=== PATIENT | female | born 1960 | race Hispanic/Latino ===

== ENCOUNTER 2017-05-26 20:39 | Emergency (ER) | payer MEDICAID ==
[2017-05-26 20:45] VITALS: BMI 30.2
[2017-05-26 20:46] VITALS: BP 153/92; PULSE 91; RESP 18; TEMP 98.1; O2SAT 97
--- NOTE | 2017-05-26 22:13 | ED PDOC ---
Arrival/HPI - General Historian: Patient - History of Present Illness Quality: Aching Severity Level: Moderate <JEROME JOHNSON - Last Filed: 05/26/17 23:05> <Rahul Rios DO - Last Filed: 05/27/17 06:25> - General Chief Complaint: Trauma Time Seen by Provider: 05/26/17 21:20 - History of Present Illness Narrative History of Present Illness (Text): 05/26/17 22:07 Ms. Reyes is a 56 yo female who complains of right shoulder, right wrist, and left neck pain after falling down a few steps on 05/24/2017. She indicates the reason for falling was a missed step. She denied any dizziness, loss of consciousness, or loss of feeling during her fall. She reports breaking her fall with an outstretched right arm and falling primarily on her right side. She states the pain is achy and worsened with movement. She reports taking a left over percocet 7.5mg this AM that improved her symptoms. (JEROME JOHNSON) Past Medical History - Provider Review Nursing Documentation Reviewed: Yes - Past History Past History: Non-Contributing - Infectious Disease Hx of Infectious Diseases: None - Tetanus Immunization Tetanus Immunization: Unknown - Cardiac Hx Hypertension: Yes - Pulmonary Hx Chronic Obstructive Pulmonary Disease (COPD): Yes Other/Comment: smoker - Neurological Hx Paralysis: No - HEENT Hx HEENT Disorder: (WEARSR X GLASSES) - Renal Hx Renal Disorder: No - Endocrine/Metabolic Hx Hypothyroidism: Yes - Hematological/Oncological Hx Cancer: Yes (cervix) - Integumentary Hx Dermatological Disorder: (ABRASION AND BRUISING FROM FALL) - Musculoskeletal/Rheumatological Hx Back Pain: Yes Hx Falls: Yes - Gastrointestinal Hx Gastrointestinal Disorders: No - Genitourinary/Gynecological Hx Incontinence: Yes (@ times) - Psychiatric Hx Psychophysiologic Disorder: Yes (SMOKES CIGARETTES ON AND OFF 2-3 CIG/DAY X 40 YRS,SOCIAL DRINKER) Hx Anxiety: Yes Hx Depression: Yes Hx Emotional Abuse: No Hx Panic Disorder: Yes Hx Physical Abuse: No Hx Substance Use: No - Surgical History Hx Orthopedic Surgery: Yes (NECK) - Anesthesia Hx Anesthesia: Yes Hx Anesthesia Reactions: No Hx Malignant Hyperthermia: No - Suicidal Assessment Feels Threatened In Home Enviroment: No <JEROME JOHNSON - Last Filed: 05/26/17 23:05> Family/Social History - Physician Review Nursing Documentation Reviewed: Yes Smoking Status: Heavy Smoker > 10 Cigarettes Daily Hx Alcohol Use: Yes Frequency of alcohol use: Socially Hx Substance Use: No Hx Substance Use Treatment: No <JEROME JOHNSON - Last Filed: 05/26/17 23:05> Family/Social History: No Known Family HX <Rahul Rios DO - Last Filed: 05/27/17 06:25> Allergies/Home Meds <JEROME JOHNSON - Last Filed: 05/26/17 23:05> <Rahul Rios DO - Last Filed: 05/27/17 06:25> Allergies/Adverse Reactions: Allergies codeine Allergy (Verified 09/05/16 10:39) ITCHING Home Medications: Home Meds Medication Instructions Recorded Confirmed Atorvastatin Calcium [Lipitor] 10 mg PO DAILY 03/08/15 05/26/17 ALPRAZolam [Xanax] 1 mg PO BID PRN 09/05/16 05/26/17 Baclofen [Lioresal] 10 mg PO Q8 09/05/16 05/26/17 Buspirone HCl 15 mg PO DAILY 09/05/16 05/26/17 Ergocalciferol (Vitamin D2) 5,000 units PO DAILY 09/05/16 05/26/17 [Vitamin D2] Mirtazapine [Remeron] 30 mg PO HS 09/05/16 05/26/17 Oxybutynin XL [Ditropan XL] 10 mg PO DAILY 09/05/16 05/26/17 Spironolactone [Aldactone] 25 mg PO DAILY 09/05/16 05/26/17 amLODIPine [Norvasc] 10 mg PO DAILY 09/05/16 05/26/17 buPROPion SR [Wellbutrin SR 150 MG] 1 tab PO DAILY 09/05/16 05/26/17 Levothyroxine [Synthroid] 100 mcg PO ACB 05/26/17 05/26/17 Oxycodone HCl/Acetaminophen 1 tab PO BID PRN 05/26/17 05/26/17 [Oxycodon-Acetaminophen 7.5-325] Zaleplon [Sonata] 1 tab PO DAILY 07/06/17 07/06/17 Review of Systems - Review of Systems Constitutional: Normal Eyes: Normal ENT: Normal Respiratory: Normal Cardiovascular: Normal Gastrointestinal: Normal Musculoskeletal: Neck Pain (left sided ), Other (right shoulder pain, right wrist pain, right breast pain) Skin: Normal Neurological: Normal Endocrine: Normal Hemo/Lymphatic: Normal <JEROME JOHNSON - Last Filed: 05/26/17 23:05> Physical Exam Vital Signs Reviewed: Yes Temperature: Afebrile Blood Pressure: Hypertensive Pulse: Tachycardic Respiratory Rate: Normal Appearance: Positive for: Well-Appearing - Systems Exam Head: Present: Atraumatic, Normocephalic Pupils: Present: PERRL Extroacular Muscles: Present: EOMI Conjunctiva: Present: Normal Mouth: Present: Moist Mucous Membranes Neck: Present: Normal Range of Motion Respiratory/Chest: Present: Clear to Auscultation, Good Air Exchange. No: Respiratory Distress, Accessory Muscle Use Cardiovascular: Present: Regular Rate and Rhythm, Normal S1, S2. No: Murmurs Abdomen: Present: Normal Bowel Sounds. No: Tenderness, Distention, Peritoneal Signs Back: Present: Normal Inspection Upper Extremity: Present: Normal ROM, NORMAL PULSES, Tenderness (Right shoulder , Right wrist, ), Neurovascularly Intact, Norm 2-Pt Discrimination. No: Cyanosis, Edema Lower Extremity: Present: Normal Inspection. No: Edema Neurological: Present: GCS=15, CN II-XII Intact, Speech Normal Skin: Present: Warm, Dry, Normal Color. No: Rashes Psychiatric: Present: Alert, Oriented x 3, Normal Insight, Normal Concentration <JEROME JOHNSON - Last Filed: 05/26/17 23:05> Medical Decision Making <JEROME JOHNSON - Last Filed: 05/26/17 23:05> <Rahul Rios DO - Last Filed: 05/27/17 06:25> ED Course and Treatment: 05/26/17 23:03 Impression: 56 year old female complaining of right shoulder, right wrist, and left neck pain for past 2 days Differential Diagnosis included but are not limited to: Plan: - Right shoulder x-ray. right wrist x-ray, CT scan of neck and head - Motrin and Flexeril for symptoms - Reassess and disposition Progress Notes: 05/26/17 23:06 (JEROME JOHNSON) - RAD Interpretation Radiology Orders: 05/26/17 21:21 CERVICAL SPINE W/O CONTRAST [CT] Stat HEAD W/O CONTRAST [CT] Stat SHOULDER RIGHT [RAD] Stat WRIST, RIGHT 3 VIEWS [RAD] Stat - Medication Orders Current Medication Orders: Discontinued Medications Cyclobenzaprine HCl (Flexeril) 10 mg PO STAT STA Stop: 05/26/17 23:55 Last Admin: 05/27/17 00:02 Dose: 10 mg Ibuprofen (Motrin Tab) 600 mg PO STAT STA Stop: 05/26/17 23:48 Last Admin: 05/26/17 23:55 Dose: Not Given Non-Admin Reason: Patient Refused Disposition/Present on Arrival - Present on Arrival History of DVT/PE: No History of Uncontrolled Diabetes: No Urinary Catheter: No History of Decub. Ulcer: No History Surgical Site Infection Following: None <JEROME JOHNSON - Last Filed: 05/26/17 23:05> - Present on Arrival Any Indicators Present on Arrival: No - Disposition Have Diagnosis and Disposition been Completed?: Yes Disposition Time: 22:45 <Rahul Rios DO - Last Filed: 05/27/17 06:25> - Disposition Diagnosis: Musculoskeletal pain, Neck pain Disposition: HOME/ ROUTINE Condition: IMPROVED Discharge Instructions (ExitCare): Musculoskeletal Pain (ED) Additional Instructions: Thank you for letting us take care of you today. You were treated for musculoskeletal pain. The emergency medical care you received today was directed at your acute symptoms. If you were prescribed any medication, please fill it and take as directed. It may take several days for your symptoms to resolve. Return to the Emergency Department if your symptoms worsen, do not improve, or if you have any other problems. Please contact your doctor or call one of the physicians/clinics you have been referred to that are listed on the Patient Visit Information form that is included in your discharge packet. Bring any paperwork you were given at discharge with you along with any medications you are taking to your follow up visit. Our treatment cannot replace ongoing medical care by a primary care provider (PCP) outside of the emergency department. Thank you for allowing the [facility] team to be part of your care today. Follow up with your doctor in 2-3 days for re-evaluation. Prescriptions: Cyclobenzaprine [Cyclobenzaprine HCl] 10 mg PO Q8 PRN #20 tab PRN Reason: Muscle Spasm Ibuprofen [Motrin] 600 mg PO Q6 PRN #20 tab PRN Reason: Pain, Moderate (4-7) Referrals: Nancy Nagel MD [Primary Care Provider] - Follow up with primary
--- NOTE | 2017-05-26 22:38 | CT ---
EXAM: CT Head Without Intravenous Contrast CLINICAL HISTORY: 56 years old, female; Injury or trauma; Fall; Initial encounter; Concussion / head injury; Additional info: S/P fall TECHNIQUE: Axial computed tomography images of the head/brain without intravenous contrast. This CT exam was performed using one or more of the following dose reduction techniques: automated exposure control, adjustment of the mA and/or kV according to patient size, and/or use of iterative reconstruction technique. COMPARISON: CT - HEAD W/O CONTRAST 09/05/2016 11:42:16 AM FINDINGS: Brain: No intracranial hemorrhage. No mass. No edema. Ventricles: No hydrocephalus. Bones/joints: No acute fracture. Soft tissues: Unremarkable. Vasculature: Minimal atherosclerotic disease of intracranial arteries. Sinuses: No acute sinusitis. Mastoid air cells: No mastoid effusion. Orbits: Unremarkable as visualized. IMPRESSION: 1. No intracranial hemorrhage. 2. Incidental/non-acute findings are described above.
--- NOTE | 2017-05-26 22:42 | CT ---
EXAM: CT Cervical Spine Without Intravenous Contrast CLINICAL HISTORY: 56 years old, female; Injury or trauma; Fall; Initial encounter; Concussion /head injury; Additional info: R/O FX TECHNIQUE: Axial computed tomography images of the cervical spine without intravenous contrast. This CT exam was performed using one or more of the following dose reduction techniques: automated exposure control, adjustment of the mA and/or kV according to patient size, and/or use of iterative reconstruction technique. Coronal and sagittal reformatted images were created and reviewed. COMPARISON: No relevant prior studies available. FINDINGS: Vertebrae: No acute fracture. Mild reversal of cervical lordosis. Schmorl's nodes at few levels. Facet osteoarthrosis within cervical spine. Discs/spinal canal/neural foramina: Early degenerative disc disease within mid cervical spine. Moderate degenerative disc disease within lower cervical spine. No significant spinal stenosis. Soft tissues: Unremarkable. Sinuses: Scattered minimal mucosal thickening. Lung apices: Mild bullous changes. IMPRESSION: 1. No fracture. 2. Incidental/non-acute findings are described above.
--- NOTE | 2017-05-27 08:48 | RAD ---
PROCEDURE: Radiographs of the Right Shoulder HISTORY: r/o fx COMPARISON: No prior. FINDINGS: BONES: Normal. No fracture. JOINTS: Normal. Glenohumeral and acromioclavicular joints preserved. No osteoarthritis. SOFT TISSUES: Normal. OTHER FINDINGS: None. IMPRESSION: No evidence of acute fracture or dislocation.
--- NOTE | 2017-05-27 09:26 | RAD ---
PROCEDURE: Right Wrist Radiographs. HISTORY: r/o fx COMPARISON: None. FINDINGS: BONES: Normal. No fracture. JOINTS: Normal. No dislocation. SOFT TISSUES: Normal. OTHER FINDINGS: None. IMPRESSION: Normal right wrist radiographs.
== END 2017-05-27 00:07 | disposition home or self-care (01) ==
LOC: ED 20:39
DX: M54.2 Cervicalgia (principal); M79.1 Myalgia; I10 Essential (primary) hypertension; F17.210 Nicotine dependence, cigarettes, uncomplicated

== ENCOUNTER 2017-06-16 04:23 | Emergency (ER) | payer MEDICAID ==
[2017-06-16 04:35] VITALS: BP 158/90; PULSE 89; RESP 18; TEMP 98.5; O2SAT 95; BMI 28.1
[2017-06-16] MEDS ORDERED: Amoxicillin-Clav 875-125 mg Tab PO STA (04:41)
--- NOTE | 2017-06-16 04:45 | ED PDOC ---
Arrival/HPI <German Martin - Last Filed: 06/16/17 04:41> <Daniel Cardoza - Last Filed: 06/16/17 04:52> - General Chief Complaint: Bite Time Seen by Provider: 06/16/17 04:34 - History of Present Illness Narrative History of Present Illness (Text): 06/16/17 04:42 This is a 56yo F w/ a PMhx of HTN, hypothyroidism, carotid aneurysm, cervical CA who is coming into the hospital after her house cat bit her on her left pointer finger. The bite was 20 minutes ago. She has owned the cat for the past 20 years. She has no other complaints; denies MURRELL, CP, SOB, abdominal pain, N/v/D , dysuria/freq/urg, or lower extremity pain/swelling. Allergic to codeine. 06/16/17 04:43 (German Martin) Past Medical History - Provider Review Nursing Documentation Reviewed: Yes - Travel History Have you recently traveled outside [place] w/in the past 3 mons?: No - Past History Past History: Non-Contributing - Infectious Disease Hx of Infectious Diseases: None - Tetanus Immunization Tetanus Immunization: Unknown - Cardiac Hx Hypertension: Yes - Pulmonary Hx Chronic Obstructive Pulmonary Disease (COPD): Yes Other/Comment: smoker - Neurological Hx Paralysis: No - HEENT Hx HEENT Disorder: (WEARSR X GLASSES) - Renal Hx Renal Disorder: No - Endocrine/Metabolic Hx Hypothyroidism: Yes - Hematological/Oncological Hx Cancer: Yes (cervix) - Integumentary Hx Dermatological Disorder: (ABRASION AND BRUISING FROM FALL) - Musculoskeletal/Rheumatological Hx Back Pain: Yes Hx Falls: Yes - Gastrointestinal Hx Gastrointestinal Disorders: No - Genitourinary/Gynecological Hx Incontinence: Yes (@ times) - Psychiatric Hx Psychophysiologic Disorder: Yes (SMOKES CIGARETTES ON AND OFF 2-3 CIG/DAY X 40 YRS,SOCIAL DRINKER) Hx Anxiety: Yes Hx Depression: Yes Hx Emotional Abuse: No Hx Panic Disorder: Yes Hx Physical Abuse: No Hx Substance Use: No - Surgical History Hx Orthopedic Surgery: Yes (NECK) - Anesthesia Hx Anesthesia: Yes Hx Anesthesia Reactions: No Hx Malignant Hyperthermia: No - Suicidal Assessment Feels Threatened In Home Enviroment: No <German Martin - Last Filed: 06/16/17 04:41> Family/Social History - Physician Review Nursing Documentation Reviewed: Yes Family/Social History: No Known Family HX Smoking Status: Heavy Smoker > 10 Cigarettes Daily Hx Alcohol Use: Yes Hx Substance Use: No Hx Substance Use Treatment: No <German Martin - Last Filed: 06/16/17 04:41> Allergies/Home Meds <German Martin - Last Filed: 06/16/17 04:41> <Daniel Cardoza - Last Filed: 06/16/17 04:52> Allergies/Adverse Reactions: Allergies codeine Allergy (Verified 09/05/16 10:39) ITCHING Home Medications: Home Meds Medication Instructions Recorded Confirmed Atorvastatin Calcium [Lipitor] 10 mg PO DAILY 03/08/15 05/26/17 ALPRAZolam [Xanax] 1 mg PO BID PRN 09/05/16 05/26/17 Baclofen [Lioresal] 10 mg PO Q8 09/05/16 05/26/17 Buspirone HCl 15 mg PO DAILY 09/05/16 05/26/17 Ergocalciferol (Vitamin D2) 5,000 units PO DAILY 09/05/16 05/26/17 [Vitamin D2] Mirtazapine [Remeron] 30 mg PO HS 09/05/16 05/26/17 Oxybutynin XL [Ditropan XL] 10 mg PO DAILY 09/05/16 05/26/17 Spironolactone [Aldactone] 25 mg PO DAILY 09/05/16 05/26/17 amLODIPine [Norvasc] 10 mg PO DAILY 09/05/16 05/26/17 buPROPion SR [Wellbutrin SR 150 MG] 1 tab PO DAILY 09/05/16 05/26/17 Levothyroxine [Synthroid] 100 mcg PO ACB 05/26/17 05/26/17 Oxycodone HCl/Acetaminophen 1 tab PO BID PRN 05/26/17 05/26/17 [Oxycodon-Acetaminophen 7.5-325] Zaleplon [Sonata] 1 tab PO DAILY 05/26/17 05/26/17 Review of Systems - Review of Systems Constitutional: absent: Fatigue, Weight Change Eyes: absent: Vision Changes, Photophobia ENT: absent: Hearing Changes, Tinnitus Respiratory: absent: SOB, Cough Cardiovascular: absent: Chest Pain, Palpitations Gastrointestinal: absent: Abdominal Pain, Stool Changes Genitourinary Female: absent: Dysuria, Frequency Musculoskeletal: absent: Arthralgias Skin: absent: Rash, Pruritis Neurological: absent: Headache Endocrine: absent: Diaphoresis Hemo/Lymphatic: absent: Adenopathy Psychiatric: absent: Anxiety, Depression <German Martin - Last Filed: 06/16/17 04:41> Physical Exam Temperature: Afebrile Blood Pressure: Normal Pulse: Regular Respiratory Rate: Normal Appearance: Positive for: Well-Appearing Mental Status: Positive for: Alert and Oriented X 3 - Systems Exam Head: Present: Atraumatic Pupils: Present: PERRL Extroacular Muscles: Present: EOMI Conjunctiva: Present: Normal Mouth: Present: Moist Mucous Membranes Neck: Present: Normal Range of Motion Respiratory/Chest: Present: Clear to Auscultation, Good Air Exchange Cardiovascular: Present: Regular Rate and Rhythm. No: Murmurs Abdomen: No: Tenderness, Distention Upper Extremity: Present: Normal Inspection. No: Cyanosis, Edema (small bite on the left pointer finger not bleeding no pus no signs of infection ) Lower Extremity: Present: Normal Inspection. No: Edema Neurological: Present: GCS=15 Skin: Present: Warm Psychiatric: Present: Alert <German Martin - Last Filed: 06/16/17 04:41> Medical Decision Making <German Martin - Last Filed: 06/16/17 04:41> <Daniel Cardoza - Last Filed: 06/16/17 04:52> ED Course and Treatment: 06/16/17 04:44 Will give augmentin here in ER Patient is stable for d/c as per Dr. Cardoza Patient will go home on Augmentin 875 BID for 7 days Explained to come back in for any worsening pain swelling or signs of infection in the finger and to keep the finger clean and dry (German Martin) Impression: Pt seen and evaluated by back office medical assistant. Pt, whose past medical history includes hypertension, hypothyroidism, carotid aneurysm, and cervical cancer, presented to the emergency department complaining of a cat bite to her left 2nd digit 20 minutes prior to arrival. Pt states the cat is her family cat. Aware and agree with HPI, clinical findings, plan, and management. Plan: -- Augmentin - Reassess and disposition (Daniel Cardoza) - Medication Orders Current Medication Orders: Discontinued Medications Amoxicillin/Clavulanate Potassium (Augmentin 875 Mg-125 Mg Tab) 1 tab PO STAT STA PRN Reason: Protocol Stop: 06/16/17 04:42 Last Admin: 06/16/17 04:45 Dose: 1 tab - PA / DOUGH SHEETER / Resident Statement / has reviewed & agrees with the documentation as recorded. / has examined the patient and agrees with the treatment plan. <Daniel Cardoza - Last Filed: 06/16/17 04:52> Disposition/Present on Arrival - Present on Arrival Any Indicators Present on Arrival: No History of DVT/PE: No History of Uncontrolled Diabetes: No Urinary Catheter: No History of Decub. Ulcer: No History Surgical Site Infection Following: None - Disposition Have Diagnosis and Disposition been Completed?: Yes Disposition Time: 04:44 Patient Plan: Discharge <German Martin - Last Filed: 06/16/17 04:41> <Daniel Cardoza - Last Filed: 06/16/17 04:52> - Disposition Diagnosis: Cat bite Disposition: HOME/ ROUTINE Condition: FAIR Discharge Instructions (ExitCare): Animal Bite (ED) Prescriptions: Amoxicillin/Clavulanate [Augmentin 875 MG-125 MG] 1 tab PO BID #14 tab Forms: [employer] ([place])
== END 2017-06-16 04:55 | disposition home or self-care (01) ==
LOC: ED 04:23
DX: S61.251A Open bite of left index finger without damage to nail, initial encounter (principal); W55.01XA Bitten by cat, initial encounter; Y93.89 Activity, other specified; Y92.89 Other specified places as the place of occurrence of the external cause

== ENCOUNTER 2017-06-26 03:26 | Emergency (ER) | payer MEDICAID ==
[2017-06-26 03:37] VITALS: BMI 28.9
[2017-06-26 03:40] VITALS: PULSE 100; TEMP 98.1
--- NOTE | 2017-06-26 03:49 | ED PDOC ---
Arrival/HPI - History of Present Illness Time/Duration: < week Symptom Onset: Gradual Symptom Course: Unchanged Context: Home <Guera Shaver - Last Filed: 06/26/17 03:45> <Camron Gomes - Last Filed: 06/26/17 04:20> - General Time Seen by Provider: 06/26/17 03:30 - History of Present Illness Narrative History of Present Illness (Text): 06/26/17 03:49 56 year old female with past medical history of HTN, tobacco abuse, hypothyroidism presents with sore throat ongoing for 3-4 days. Patient complains of nasal congestion, rhinorrhea, productive cough. She denies having any F/C, CP, SOB. Patient has extensive history of tobacco abuse. Patient was also seen in ED a few days ago after getting bit on finger by her cat. She was discharged with Augmentin which she completed. (Guera Shaver) Past Medical History - Provider Review Nursing Documentation Reviewed: Yes - Past History Past History: Non-Contributing - Infectious Disease Hx of Infectious Diseases: None - Tetanus Immunization Tetanus Immunization: Unknown - Cardiac Hx Hypertension: Yes - Pulmonary Hx Chronic Obstructive Pulmonary Disease (COPD): Yes Other/Comment: smoker - Neurological Hx Paralysis: No - HEENT Hx HEENT Disorder: (WEARSR X GLASSES) - Renal Hx Renal Disorder: No - Endocrine/Metabolic Hx Hypothyroidism: Yes - Hematological/Oncological Hx Cancer: Yes (cervix) - Integumentary Hx Dermatological Disorder: (ABRASION AND BRUISING FROM FALL) - Musculoskeletal/Rheumatological Hx Back Pain: Yes Hx Falls: Yes - Gastrointestinal Hx Gastrointestinal Disorders: No - Genitourinary/Gynecological Hx Incontinence: Yes (@ times) - Psychiatric Hx Psychophysiologic Disorder: Yes (SMOKES CIGARETTES ON AND OFF 2-3 CIG/DAY X 40 YRS,SOCIAL DRINKER) Hx Anxiety: Yes Hx Depression: Yes Hx Emotional Abuse: No Hx Panic Disorder: Yes Hx Physical Abuse: No Hx Substance Use: No - Surgical History Hx Orthopedic Surgery: Yes (NECK) - Anesthesia Hx Anesthesia: Yes Hx Anesthesia Reactions: No Hx Malignant Hyperthermia: No - Suicidal Assessment Feels Threatened In Home Enviroment: No <Guera Shaver - Last Filed: 06/26/17 03:45> Family/Social History - Physician Review Nursing Documentation Reviewed: Yes Family/Social History: Unknown Family HX Smoking Status: Heavy Smoker > 10 Cigarettes Daily Hx Alcohol Use: Yes Hx Substance Use: No Hx Substance Use Treatment: No <Guera Shaver - Last Filed: 06/26/17 03:45> Allergies/Home Meds <Guera Shaver - Last Filed: 06/26/17 03:45> <Camron Gomes - Last Filed: 06/26/17 04:20> Allergies/Adverse Reactions: Allergies codeine Allergy (Verified 06/26/17 03:28) ITCHING Home Medications: Home Meds Medication Instructions Recorded Confirmed Atorvastatin Calcium [Lipitor] 10 mg PO DAILY 03/08/15 06/26/17 ALPRAZolam [Xanax] 1 mg PO BID PRN 09/05/16 06/26/17 Baclofen [Lioresal] 10 mg PO Q8 09/05/16 06/26/17 Buspirone HCl 15 mg PO DAILY 09/05/16 06/26/17 Ergocalciferol (Vitamin D2) 5,000 units PO DAILY 09/05/16 06/26/17 [Vitamin D2] Mirtazapine [Remeron] 30 mg PO HS 09/05/16 06/26/17 Oxybutynin XL [Ditropan XL] 10 mg PO DAILY 09/05/16 06/26/17 Spironolactone [Aldactone] 25 mg PO DAILY 09/05/16 06/26/17 amLODIPine [Norvasc] 10 mg PO DAILY 09/05/16 06/26/17 buPROPion SR [Wellbutrin SR 150 MG] 1 tab PO DAILY 09/05/16 06/26/17 Levothyroxine [Synthroid] 100 mcg PO ACB 05/26/17 06/26/17 Oxycodone HCl/Acetaminophen 1 tab PO BID PRN 05/26/17 06/26/17 [Oxycodon-Acetaminophen 7.5-325] Zaleplon [Sonata] 1 tab PO DAILY 05/26/17 06/26/17 Review of Systems - Review of Systems Constitutional: Normal. absent: Fatigue, Fevers Eyes: Normal ENT: Sore Throat, Rhinorrhea Respiratory: Cough, Sputum. absent: SOB, Wheezing Cardiovascular: Normal. absent: Chest Pain, Edema, Calf Pain Gastrointestinal: Normal. absent: Abdominal Pain, Constipation, Diarrhea, Nausea, Vomiting Genitourinary Female: Normal. absent: Dysuria, Frequency Skin: Normal. absent: Rash, Pruritis, Skin Lesions Neurological: Normal. absent: Headache, Dizziness Endocrine: Normal. absent: Diaphoresis Hemo/Lymphatic: Normal. absent: Adenopathy <Guera Shaver - Last Filed: 06/26/17 03:45> Physical Exam Vital Signs Reviewed: Yes Temperature: Afebrile Blood Pressure: Normal Pulse: Regular Respiratory Rate: Normal Appearance: Positive for: Well-Appearing, Non-Toxic, Comfortable Pain Distress: None Mental Status: Positive for: Alert and Oriented X 3 - Systems Exam Head: Present: Atraumatic, Normocephalic Extroacular Muscles: Present: EOMI Conjunctiva: Present: Normal Ears: Present: NORMAL TM, Normal Canal. No: Erythema, TM Bulging, Fluid, TM Perf Mouth: Present: Moist Mucous Membranes Pharnyx: No: ERYTHEMA, EXUDATE, TONSILS ENLARGED, Peritonsilar Swelling, Uvular Deviation Nose (Internal): Present: Normal Inspection. No: Engorged, Edematous, Boggy, Clear Mucous, Rhinorrhea, Purulent Mucous Respiratory/Chest: Present: Clear to Auscultation, Good Air Exchange. No: Respiratory Distress, Accessory Muscle Use, Wheezes, Rales, Rhonchi Cardiovascular: Present: Regular Rate and Rhythm, Normal S1, S2. No: Murmurs, Gallop, Muffled Abdomen: Present: Normal Bowel Sounds. No: Tenderness, Distention, Peritoneal Signs Lower Extremity: No: Edema Neurological: Present: GCS=15 Skin: Present: Warm, Dry, Normal Color. No: Rashes Psychiatric: Present: Alert, Oriented x 3, Normal Insight, Normal Concentration <Guera Shaver - Last Filed: 06/26/17 03:45> Medical Decision Making <Guera Shaver - Last Filed: 06/26/17 03:45> <Camron Gomes - Last Filed: 06/26/17 04:20> ED Course and Treatment: 06/26/17 03:56 56 year old female presents for sore throat likely due to URI Patient will be given biaxin 500 mg PO BID for ten days (Guera Shaver) Impression: Pt seen and evaluated with medical records receptionist. Pt, whose past medical history includes hypertension, tobacco abuse, and hypothyroidism, presents for sore throat for 3-4 days with associated nasal congestion, rhinorrhea, and productive cough. Pt recently finished course of antibiotics following a cat bite. Aware and agree with HPI, clinical findings, plan, and management. Differential Diagnosis included but are not limited to: URI Plan: -- Biaxin -- Reassess and disposition (Camron Gomes) - PA / JOB ANALYST / Resident Statement MD/DO has reviewed & agrees with the documentation as recorded. MD/DO has examined the patient and agrees with the treatment plan. <Camron Gomes - Last Filed: 06/26/17 04:20> Disposition/Present on Arrival - Present on Arrival Any Indicators Present on Arrival: No History of DVT/PE: No History of Uncontrolled Diabetes: No Urinary Catheter: No History of Decub. Ulcer: No History Surgical Site Infection Following: None - Disposition Have Diagnosis and Disposition been Completed?: Yes Disposition Time: 03:45 Patient Plan: Discharge <Guera Shaver - Last Filed: 06/26/17 03:45> <Camron Gomes - Last Filed: 06/26/17 04:20> - Disposition Diagnosis: URI (upper respiratory infection) Disposition: HOME/ ROUTINE Condition: GOOD Additional Instructions: Catia Reyes, thank you for letting us take care of you today. Your provider was Dr. Guera Shaver. You were treated for Upper Respiratory Infection. The emergency medical care you received today was directed at your acute symptoms. If you were prescribed any medication, please fill it and take as directed. It may take several days for your symptoms to resolve. Return to the Emergency Department if your symptoms worsen, do not improve, or if you have any other problems. Please contact your doctor or call one of the physicians/clinics you have been referred to that are listed on the Patient Visit Information form that is included in your discharge packet. Bring any paperwork you were given at discharge with you along with any medications you are taking to your follow up visit. Our treatment cannot replace ongoing medical care by a primary care provider (PCP) outside of the emergency department. Thank you for allowing the [facility] team to be part of your care today. If you had an X-Ray or CT scan: A Radiologist will review the ED reading if any change in treatment is needed we will contact you. If you had a blood, urine, or wound culture: It will take several days for the results, if any change in treatment is needed we will contact you. If you had an STI test: It will take 48 hours for the results. Please call after 1 week if you have not heard back. Prescriptions: Clarithromycin [Biaxin Filmtab] 500 mg PO BID 10 Days Forms: [employer] (Hebrew)
[2017-06-26 03:55] VITALS: BP 156/102
[2017-06-26 03:57] VITALS: RESP 18; O2SAT 99
== END 2017-06-26 03:57 | disposition home or self-care (01) ==
LOC: ED 03:26
DX: J06.9 Acute upper respiratory infection, unspecified (principal); I10 Essential (primary) hypertension; E03.9 Hypothyroidism, unspecified

== ENCOUNTER 2017-10-03 20:06 | Emergency (ER) | payer MEDICAID ==
[2017-10-03 20:07] VITALS: BMI 28.9
[2017-10-03 20:19] VITALS: BP 168/105; PULSE 86; RESP 16; TEMP 98.2; O2SAT 97
--- NOTE | 2017-10-03 20:38 | ED PDOC ---
Arrival/HPI - General Chief Complaint: Hip Pain Time Seen by Provider: 10/03/17 20:13 - History of Present Illness Narrative History of Present Illness (Text): 10/03/17 20:36 Patient is a 56 y/o F with hx of arthritis, presenting with 2 month history of R hip pain. She reports that this has been a chronic issue and she has been following up with her PMD. She reports that she has been precribed xrays, but has not been able to get them. Presents today requesting hip and back xrays as prescribed by PMD so she can get outpatient MRI. Denies weakness, numbness, tingling. PMD: Dr. Nagel Past Medical History - Past History Past History: Non-Contributing - Infectious Disease Hx of Infectious Diseases: None - Tetanus Immunization Tetanus Immunization: Unknown - Reproductive Menopause: Yes - Cardiac Hx Hypertension: Yes - Pulmonary Hx Chronic Obstructive Pulmonary Disease (COPD): Yes Other/Comment: smoker - Neurological Hx Paralysis: No - HEENT Hx HEENT Disorder: (WEARS GLASSES) - Renal Hx Renal Disorder: No - Endocrine/Metabolic Hx Hypothyroidism: Yes - Hematological/Oncological Hx Cancer: Yes (cervix) - Integumentary Hx Dermatological Disorder: (ABRASION AND BRUISING FROM FALL) - Musculoskeletal/Rheumatological Hx Back Pain: Yes Hx Falls: Yes - Gastrointestinal Hx Gastrointestinal Disorders: No - Genitourinary/Gynecological Hx Incontinence: Yes - Psychiatric Hx Psychophysiologic Disorder: Yes Hx Anxiety: Yes Hx Depression: Yes Hx Panic Disorder: Yes Hx Substance Use: No - Surgical History Hx Orthopedic Surgery: Yes (NECK) - Anesthesia Hx Anesthesia: Yes - Suicidal Assessment Feels Threatened In Home Enviroment: No Family/Social History Family/Social History: No Known Family HX Smoking Status: Heavy Smoker > 10 Cigarettes Daily Hx Alcohol Use: Yes Hx Substance Use: No Hx Substance Use Treatment: No Allergies/Home Meds Allergies/Adverse Reactions: Allergies codeine Allergy (Verified 10/03/17 20:10) ITCHING Home Medications: Home Meds Medication Instructions Recorded Confirmed Atorvastatin Calcium [Lipitor] 10 mg PO DAILY 03/08/15 10/03/17 ALPRAZolam [Xanax] 1 mg PO BID PRN 09/05/16 10/03/17 Buspirone HCl 15 mg PO DAILY 09/05/16 10/03/17 Mirtazapine [Remeron] 30 mg PO HS 10/16/16 11/13/17 Oxybutynin XL [Ditropan XL] 10 mg PO DAILY 09/05/16 10/03/17 Spironolactone [Aldactone] 25 mg PO DAILY 09/05/16 10/03/17 buPROPion SR [Wellbutrin SR 150 MG] 1 tab PO DAILY 09/05/16 10/03/17 Levothyroxine [Synthroid] 100 mcg PO ACB 05/26/17 10/03/17 Zaleplon [Sonata] 1 tab PO DAILY 05/26/17 10/03/17 Review of Systems - Physician Review All systems were reviewed & negative as marked: Yes - Review of Systems Constitutional: absent: Fatigue, Weight Change, Fevers Eyes: absent: Vision Changes ENT: absent: Hearing Changes Respiratory: absent: SOB, Cough, Sputum, Wheezing Cardiovascular: absent: Chest Pain, Palpitations, Edema, Calf Pain, [place], Orthopnea, Syncope Gastrointestinal: absent: Abdominal Pain, Constipation, Diarrhea, Nausea, Vomiting Genitourinary Female: absent: Dysuria Musculoskeletal: Arthralgias, Other (R hip pain) Skin: absent: Rash Neurological: absent: Headache, Dizziness, Focal Weakness, Gait Changes, Speech Changes, Facial Droop, Disequilibrium Physical Exam Vital Signs Temp Pulse Resp BP Pulse Ox 10/03/17 20:14 98.2 F 86 16 168/105 H 97 Temperature: Afebrile Blood Pressure: Hypertensive Pulse: Regular Respiratory Rate: Normal Appearance: Positive for: Well-Appearing, Non-Toxic, Comfortable Pain Distress: None Mental Status: Positive for: Alert and Oriented X 3 - Systems Exam Head: Present: Atraumatic, Normocephalic Pupils: Present: PERRL Extroacular Muscles: Present: EOMI Conjunctiva: Present: Normal Mouth: Present: Moist Mucous Membranes Neck: Present: Normal Range of Motion Respiratory/Chest: Present: Clear to Auscultation, Good Air Exchange. No: Respiratory Distress, Accessory Muscle Use Cardiovascular: Present: Regular Rate and Rhythm, Normal S1, S2. No: Murmurs Abdomen: No: Tenderness, Distention Back: Present: Normal Inspection. No: CVA Tenderness, Midline Tenderness, Paraspinal Tenderness, Pain with Leg Raise Upper Extremity: Present: Normal Inspection Lower Extremity: Present: Normal Inspection, NORMAL PULSES, Normal ROM, Tenderness, Neurovascularly Intact, Other (tenderness to R gluteus uyen and along R lateral thigh). No: Edema, CALF TENDERNESS, Swelling, Deformity, Temperature Abnormalties Neurological: Present: GCS=15, CN II-XII Intact, Speech Normal, Motor Func Grossly Intact, Normal Sensory Function, Gait Normal Skin: Present: Warm, Dry. No: Rashes Psychiatric: Present: Alert, Oriented x 3 Medical Decision Making ED Course and Treatment: 10/03/17 20:55 Patient has hx of arthritis and is complaining of R hip and R back pain. Presentation consistent with sciatica. Patient is neurologically intact with no recent trauma. Ambulating around the ED without issue. Will get xrays to r/ o fracture, give toradol for pain and have patient follow-up with PMD. PMD Dr. Nagel in ED and agrees with plan. 10/03/17 21:45 - RAD Interpretation Radiology Orders: 10/03/17 20:32 HIP MIN 2V W/ PELVIS RT [RAD] Stat LS SPINE AP/LAT [RAD] Stat - Medication Orders Current Medication Orders: Discontinued Medications Ketorolac Tromethamine (Toradol) 60 mg IM STAT STA Stop: 10/03/17 20:39 Last Admin: 10/03/17 21:25 Dose: 60 mg MAR Pain Assessment Document 10/03/17 21:25 RD (Rec: 10/03/17 21:38 RD [id number]) Pain Reassessment Is this a pain reassessment? No Sleep Is patient sleeping during reassessment? No Presence of Pain Presence of Pain Yes IM Administration Charges Document 10/03/17 21:25 RD (Rec: 10/03/17 21:38 RD [id number]) Injection Site MAR Injection Site Left Deltoid Charges for Administration # of IM Administrations 1 Disposition/Present on Arrival - Present on Arrival Any Indicators Present on Arrival: No History of DVT/PE: No History of Uncontrolled Diabetes: No Urinary Catheter: No History of Decub. Ulcer: No History Surgical Site Infection Following: None - Disposition Have Diagnosis and Disposition been Completed?: Yes Diagnosis: Hip pain Disposition: HOME/ ROUTINE Disposition Time: 21:46 Patient Plan: Discharge Condition: GOOD Additional Instructions: Follow-up with PMD within 2 days for further evaluation. Return to ED if condition worsens. Motrin for pain. Prescriptions: Ibuprofen [Motrin] 600 mg PO Q6 PRN #20 tab PRN Reason: Pain, Mild (1-3) Referrals: [facility] Pradeep Req, [Non-Staff] - Follow up with primary Forms: [employer] (Belarusian)
--- NOTE | 2017-10-04 09:14 | RAD ---
PROCEDURE: Radiographs of the Lumbar Spine. HISTORY: back pain COMPARISON: No prior. FINDINGS: BONES: Vertebral bodies are maintained in height. There is mild dextroscoliotic curvature. There is grade 1 anterolisthesis at L4-5 without definite spondylolysis. Normal alignment is maintained elsewhere. . DISC SPACES: Unremarkable. OTHER FINDINGS: None. IMPRESSION: Grade 1 anterolisthesis at L4-5. Mild dextroscoliosis.
--- NOTE | 2017-10-04 09:15 | RAD ---
PROCEDURE: Right Hip Radiographs. HISTORY: hip and back pain COMPARISON: None. FINDINGS: BONES: Normal. No fracture. JOINTS: Normal. SOFT TISSUES: Normal. OTHER FINDINGS: None. IMPRESSION: Normal radiographs of right hip.
== END 2017-10-03 21:56 | disposition home or self-care (01) ==
LOC: ED 20:06
DX: M25.551 Pain in right hip (principal); E03.9 Hypothyroidism, unspecified; F17.210 Nicotine dependence, cigarettes, uncomplicated; I10 Essential (primary) hypertension; J44.9 Chronic obstructive pulmonary disease, unspecified
CPT/HCPCS: 72100; 73502; 96372; 99282; J1885

== ENCOUNTER 2017-12-29 18:29 | Emergency (ER) | payer MEDICAID ==
[2017-12-29 18:42] VITALS: BMI 29.2
[2017-12-29 18:47] VITALS: BP 151/94; PULSE 96; RESP 18; TEMP 98.2; O2SAT 96
--- NOTE | 2017-12-29 19:05 | ED PDOC ---
Arrival/HPI - General Chief Complaint: Upper Extremity Problem/Injury Time Seen by Provider: 12/29/17 19:03 Historian: Patient - History of Present Illness Narrative History of Present Illness (Text): 12/29/17 19:05 57yo female with PMHx of chronic back and neck pain present with complaint of left sided scapular pain and neck spasms. she described pain as tightness x 3days. Reports history of this pain in the past. states she was suppose to see a pain management, but have being busy with life. She did not take any medication. Pain is intermittent, no relieving/exacerbating factors. Denies any other complaint. Past Medical History - Provider Review Nursing Documentation Reviewed: Yes - Past History Past History: Non-Contributing - Infectious Disease Hx of Infectious Diseases: None - Tetanus Immunization Tetanus Immunization: Unknown - Reproductive Menopause: Yes - Cardiac Hx Hypertension: Yes - Pulmonary Other/Comment: smoker - Neurological Hx Paralysis: No - HEENT Hx HEENT Disorder: (WEARS GLASSES) - Renal Hx Renal Disorder: No - Endocrine/Metabolic Hx Hypothyroidism: Yes - Hematological/Oncological Hx Cancer: Yes (cervix) - Integumentary Hx Dermatological Disorder: (ABRASION AND BRUISING FROM FALL) - Musculoskeletal/Rheumatological Hx Back Pain: Yes - Gastrointestinal Hx Gastrointestinal Disorders: No - Genitourinary/Gynecological Hx Incontinence: Yes - Psychiatric Hx Psychophysiologic Disorder: Yes Hx Anxiety: Yes Hx Depression: Yes Hx Panic Disorder: Yes Hx Substance Use: No - Surgical History Hx Orthopedic Surgery: Yes (NECK) - Anesthesia Hx Anesthesia: Yes Hx Anesthesia Reactions: No Hx Malignant Hyperthermia: No - Suicidal Assessment Feels Threatened In Home Enviroment: No Family/Social History - Physician Review Nursing Documentation Reviewed: Yes Family/Social History: Unknown Family HX Smoking Status: Heavy Smoker > 10 Cigarettes Daily Hx Alcohol Use: Yes Hx Substance Use: No Hx Substance Use Treatment: No Allergies/Home Meds Allergies/Adverse Reactions: Allergies codeine Allergy (Verified 10/03/17 20:10) ITCHING Home Medications: Home Meds Medication Instructions Recorded Confirmed ALPRAZolam [Xanax] 1 mg PO BID PRN 09/05/16 12/29/17 Buspirone HCl 15 mg PO DAILY 09/05/16 12/29/17 Mirtazapine [Remeron] 30 mg PO HS 09/05/16 12/29/17 Spironolactone [Aldactone] 25 mg PO DAILY 09/05/16 12/29/17 buPROPion SR [Wellbutrin SR 150 MG] 1 tab PO DAILY 09/05/16 12/29/17 Levothyroxine [Synthroid] 88 mcg PO ACB 05/26/17 12/29/17 Zaleplon [Sonata] 5 mg PO HS 05/26/17 12/29/17 buPROPion SR [Wellbutrin SR 150 MG] 150 mg PO DAILY 12/29/17 12/29/17 Review of Systems - Physician Review All systems were reviewed & negative as marked: Yes - Review of Systems Constitutional: Normal Eyes: Normal ENT: Normal Respiratory: Normal Cardiovascular: Normal Gastrointestinal: Normal Genitourinary Female: Normal Musculoskeletal: Back Pain Skin: Normal Neurological: Normal Endocrine: Normal Hemo/Lymphatic: Normal Psychiatric: Normal Physical Exam Vital Signs Reviewed: Yes Vital Signs Temp Pulse Resp BP Pulse Ox 12/29/17 18:30 98.2 F 96 H 18 151/94 H 96 Temperature: Afebrile Blood Pressure: Normal Pulse: Regular Respiratory Rate: Normal Appearance: Positive for: Well-Appearing, Non-Toxic, Comfortable Pain Distress: None Mental Status: Positive for: Alert and Oriented X 3 - Systems Exam Head: Present: Atraumatic, Normocephalic Pupils: Present: PERRL Extroacular Muscles: Present: EOMI Conjunctiva: Present: Normal Mouth: Present: Moist Mucous Membranes Neck: Present: Normal Range of Motion Respiratory/Chest: Present: Clear to Auscultation, Good Air Exchange. No: Respiratory Distress, Accessory Muscle Use, Wheezes, Decreased Breath Sounds, Rales, Retracting, Rhonchi, Tachypneic Cardiovascular: Present: Regular Rate and Rhythm, Normal S1, S2. No: Murmurs Abdomen: Present: Normal Bowel Sounds. No: Tenderness, Distention, Peritoneal Signs Back: Present: Paraspinal Tenderness (Tenderness over the left scapula/thoracic area). No: Midline Tenderness, Pain with Leg Raise Upper Extremity: Present: Normal Inspection. No: Cyanosis, Edema Lower Extremity: Present: Normal Inspection. No: Edema Neurological: Present: GCS=15, CN II-XII Intact, Speech Normal Skin: Present: Warm, Dry, Normal Color. No: Rashes Psychiatric: Present: Alert, Oriented x 3, Normal Insight, Normal Concentration Medical Decision Making ED Course and Treatment: 12/29/17 21:12 Thoracic spine xray - No acute finding Pt's pain was controlled in ED with medication. she will be DC home with a rx of Naprosyn and flexeril. Referred to a pain management - RAD Interpretation Radiology Orders: 12/29/17 19:03 DORSAL (THORACIC) SPINE [RAD] Stat - Medication Orders Current Medication Orders: Discontinued Medications Cyclobenzaprine HCl (Flexeril) 10 mg PO STAT STA Stop: 12/29/17 19:05 Last Admin: 12/29/17 20:01 Dose: 10 mg Ketorolac Tromethamine (Toradol) 60 mg IM STAT STA Stop: 12/29/17 19:05 Last Admin: 12/29/17 20:00 Dose: 60 mg MAR Pain Assessment Document 12/29/17 20:00 RD (Rec: 12/29/17 20:00 RD [id number]) Pain Reassessment Is this a pain reassessment? No Sleep Is patient sleeping during reassessment? No Presence of Pain Presence of Pain Yes IM Administration Charges Document 12/29/17 20:00 RD (Rec: 12/29/17 20:00 RD [email or web address]) Injection Site MAR Injection Site Left Vastus Lateralis Charges for Administration # of IM Administrations 1 Disposition/Present on Arrival - Present on Arrival Any Indicators Present on Arrival: No History of DVT/PE: No History of Uncontrolled Diabetes: No Urinary Catheter: No History of Decub. Ulcer: No History Surgical Site Infection Following: None - Disposition Have Diagnosis and Disposition been Completed?: Yes Diagnosis: Thoracic spine pain, Neck pain Disposition: HOME/ ROUTINE Disposition Time: 21:15 Patient Plan: Discharge Condition: STABLE Discharge Instructions (ExitCare): Chronic Back Pain (ED) Additional Instructions: follow up with your doctor/pain managements Return to ED for any new or worsening symptoms Prescriptions: Cyclobenzaprine [Cyclobenzaprine HCl] 10 mg PO BID #10 tab Naproxen [Naprosyn] 500 mg PO BID #20 tablet Forms: [employer] (Latvian)
--- NOTE | 2017-12-30 10:07 | RAD ---
HISTORY: back pain COMPARISON: No prior. FINDINGS: BONES: Alignment maintained. No fracture. DISC SPACES: Normal. SOFT TISSUES: Normal. OTHER FINDINGS: None. IMPRESSION: No radiographic evidence of acute pathology at the thoracic spine.
== END 2017-12-29 21:31 | disposition home or self-care (01) ==
LOC: ED 18:29
DX: M54.2 Cervicalgia (principal); M54.6 Pain in thoracic spine
CPT/HCPCS: 72070; 96372; 99283; J1885

== ENCOUNTER 2018-10-20 06:52 | Emergency (ER) | payer MEDICAID ==
[2018-10-20 06:59] VITALS: BMI 30.4
[2018-10-20 07:08] VITALS: TEMP 98.7; O2SAT 98
[2018-10-20 08:23] VITALS: RESP 18
[2018-10-20 08:50] LABS: BASO # 0.01 K/mm3 (0.0-2.0); BASO % 0.2 % (0.0-3.0); EOS % 0.8 % (1.5-5.0); GRAN # 2.69 (1.4-6.5); GRAN % 50.8 % (50.0-68.0); HEMOGLOBIN 12.5 g/dL (12.0-16.0); LYMPH # 2.1 (1.2-3.4); LYMPH % 39.5 % (22.0-35.0); MEAN CELL VOLUME 96.9 fl (80.0-105.0); MEAN CORPUSCULAR HEMOGLOBIN 32.2 pg (25.0-35.0); MEAN CORPUSCULAR HGB CONC 33.2 g/dl (31.0-37.0); MEAN PLATELET VOLUME 10.6 fl (7.0-11.0); MONO # 0.5 (0.1-0.6); MONO % 8.7 % (1.0-6.0); RBC 3.88 10^6/uL (3.5-6.1); WHITE BLOOD COUNT 5.3 10^3/uL (4.5-11.0)
[2018-10-20 09:00] LABS: ALB/GLOB RATIO 1.4 (1.1-1.8); ALBUMIN 4.1 g/dL (3.0-4.8); ALT/SGPT 40 U/L (7-56); AST/SGOT 39 U/L (14-36); BLOOD UREA NITROGEN 7 mg/dL (7-21); CALCIUM 9.2 mg/dL (8.4-10.5); GFR NON-AFRICAN AMERICAN > 60
[2018-10-20 09:11] LABS: TROPONIN I < 0.01 ng/mL
--- NOTE | 2018-10-20 09:14 | RAD ---
Date of service: 10/20/2018 HISTORY: r/o infiltrate COMPARISON: No prior. FINDINGS: LUNGS: No active pulmonary disease. PLEURA: No significant pleural effusion identified, no pneumothorax apparent. CARDIOVASCULAR: Aortic calcification Normal cardiac size. No pulmonary vascular congestion. OSSEOUS STRUCTURES: No significant abnormalities. VISUALIZED UPPER ABDOMEN: Normal. OTHER FINDINGS: None. IMPRESSION: No active disease.
[2018-10-20 09:28] VITALS: BP 125/74; PULSE 76
--- NOTE | 2018-10-20 10:00 | ED PDOC ---
Arrival/HPI - General Chief Complaint: Shortness Of Breath Time Seen by Provider: 10/20/18 07:13 Historian: Patient - History of Present Illness Narrative History of Present Illness (Text): 10/20/18 07:50 57 year old female, whose past medical history includes chronic back and neck pain, who presents complaining of chronic pain, chronic issues, and sore throat for approximately 1 month. Patient states she was not able to come before since she did not have a ride to get to [facility] until today. Patient notes she saw Dr. Nagel "the other day," and was told to see a few different specialists. Patient denies any other complaint. PMD: Dr. Nagel Time/Duration: Other (patient notes onset of symptoms as 1 month) Symptom Onset: Sudden Symptom Course: Unchanged Activities at Onset: Light Past Medical History - Provider Review Nursing Documentation Reviewed: Yes - Past History Past History: Non-Contributing - Infectious Disease Hx of Infectious Diseases: None - Tetanus Immunization Tetanus Immunization: Unknown - Cardiac Hx Hypertension: Yes - Pulmonary Other/Comment: smoker - Neurological Hx Paralysis: No - HEENT Hx HEENT Disorder: (WEARS GLASSES) - Renal Hx Renal Disorder: No - Endocrine/Metabolic Hx Hypothyroidism: Yes - Hematological/Oncological Hx Cancer: Yes (cervix) - Integumentary Hx Dermatological Disorder: (ABRASION AND BRUISING FROM FALL) - Musculoskeletal/Rheumatological Hx Back Pain: Yes - Gastrointestinal Hx Gastrointestinal Disorders: No - Genitourinary/Gynecological Hx Incontinence: Yes - Psychiatric Hx Psychophysiologic Disorder: Yes Hx Anxiety: Yes Hx Depression: Yes Hx Panic Disorder: Yes Hx Substance Use: No - Surgical History Hx Orthopedic Surgery: Yes (NECK) - Anesthesia Hx Anesthesia: Yes Hx Anesthesia Reactions: No Hx Malignant Hyperthermia: No - Suicidal Assessment Feels Threatened In Home Enviroment: No Family/Social History - Physician Review Nursing Documentation Reviewed: Yes Family/Social History: No Known Family HX Smoking Status: pt quit Hx Alcohol Use: Yes Hx Substance Use: No Hx Substance Use Treatment: No Allergies/Home Meds Allergies/Adverse Reactions: Allergies codeine Allergy (Verified 10/03/17 20:10) ITCHING Home Medications: Home Meds Medication Instructions Recorded Confirmed ALPRAZolam [Xanax] 1 mg PO BID PRN 09/05/16 12/29/17 Buspirone HCl 15 mg PO DAILY 09/05/16 12/29/17 Mirtazapine [Remeron] 30 mg PO HS 09/05/16 12/29/17 Spironolactone [Aldactone] 25 mg PO DAILY 09/05/16 12/29/17 buPROPion SR [Wellbutrin SR 150 MG] 1 tab PO DAILY 09/05/16 12/29/17 Levothyroxine [Synthroid] 88 mcg PO ACB 05/26/17 12/29/17 Zaleplon [Sonata] 5 mg PO HS 05/26/17 12/29/17 buPROPion SR [Wellbutrin SR 150 MG] 150 mg PO DAILY 12/29/17 12/29/17 Review of Systems - Physician Review All systems were reviewed & negative as marked: Yes - Review of Systems ENT: Sore Throat. absent: Normal Musculoskeletal: Arthralgias (pt notes chronic pains/issues). absent: Normal Physical Exam Vital Signs Reviewed: Yes Vital Signs Temp Pulse Resp BP Pulse Ox 10/20/18 09:27 76 18 125/74 98 10/20/18 08:23 79 18 128/85 98 10/20/18 08:15 18 10/20/18 07:07 98.7 F 82 20 130/94 H 98 Temperature: Afebrile Blood Pressure: Normal Pulse: Regular Respiratory Rate: Normal Appearance: Positive for: Well-Appearing, Non-Toxic, Comfortable Pain Distress: Mild Mental Status: Positive for: Alert and Oriented X 3 - Systems Exam Head: Present: Atraumatic, Normocephalic Pupils: Present: PERRL Extroacular Muscles: Present: EOMI Conjunctiva: Present: Normal Mouth: Present: Moist Mucous Membranes Neck: Present: Normal Range of Motion Respiratory/Chest: Present: Clear to Auscultation, Good Air Exchange. No: Respiratory Distress, Accessory Muscle Use Cardiovascular: Present: Regular Rate and Rhythm, Normal S1, S2. No: Murmurs Abdomen: No: Tenderness, Distention, Peritoneal Signs Back: Present: Normal Inspection Upper Extremity: Present: Normal Inspection. No: Cyanosis, Edema Lower Extremity: Present: Normal Inspection. No: Edema Neurological: Present: GCS=15, CN II-XII Intact, Speech Normal Skin: Present: Warm, Dry, Normal Color. No: Rashes Psychiatric: Present: Alert, Oriented x 3, Normal Insight, Normal Concentration Medical Decision Making ED Course and Treatment: 10/20/18 07:50 Impression: 57 year old female who presents complaining of chronic pain, chronic issues, and sore throat for approximately 1 month. Plan: -- EKG -- Labs -- CBC (with differential) -- X-Ray of chest -- Urine culture -- Urinalysis -- Reassess and disposition Prior Visits: Notes and results from previous visits were reviewed. Patient was last seen in the emergency department on 12/29/17 with complaint of left sided scapular pain and neck spasms. Patient was discharged home in stable condition, given instr uctions for care with diagnosis of thoracic spine pain and neck pain. Prescriptions: Cyclobenzaprine [Cyclobenzaprine HCl] 10 mg PO BID #10 tab Naproxen [Naprosyn] 500 mg PO BID #20 tablet Progress Notes: - Lab Interpretations Lab Results: 10/20/18 08:40 10/20/18 08:40 Lab Results 10/20/18 08:40: Sodium 139, Potassium 3.4 L, Chloride 104, Carbon Dioxide 29, Anion Gap 10, BUN 7, Creatinine 0.8, Est GFR ( Amer) > 60, Est GFR (Non- Af Amer) > 60, Random Glucose 93, Calcium 9.2, Magnesium 1.8, Total Bilirubin 0 .5, AST 39 H, ALT 40, Alkaline Phosphatase 77, Lactate Dehydrogenase 581, Total Creatine Kinase 203, Troponin I < 0.01, Total Protein 7.0, Albumin 4.1, Globulin 2.9, Albumin/Globulin Ratio 1.4 10/20/18 08:40: WBC 5.3, RBC 3.88, Hgb 12.5, Hct 37.6, MCV 96.9, MCH 32.2, MCHC 33.2, RDW 13.0, Plt Count 317, MPV 10.6, Gran % 50.8, Lymph % (Auto) 39.5 H, [place] % (Auto) 8.7 H, Eos % (Auto) 0.8 L, Baso % (Auto) 0.2, Gran # 2.69, Lymph # (Auto) 2.1, [place] # (Auto) 0.5, Eos # (Auto) 0.0, Baso # (Auto) 0.01 - RAD Interpretation Narrative RAD Interpretations (Text): X-Ray of chest reviewed by radiologist, shows: Dictator : Tony Drummond MD Report Date : 10/20/2018 09:10:36 FINDINGS: LUNGS: No active pulmonary disease. PLEURA: No significant pleural effusion identified, no pneumothorax apparent. CARDIOVASCULAR: Aortic calcification Normal cardiac size. No pulmonary vascular congestion. OSSEOUS STRUCTURES: No significant abnormalities. VISUALIZED UPPER ABDOMEN: Normal. OTHER FINDINGS: None. IMPRESSION: No active disease. Radiology Orders: 10/20/18 08:21 CHEST PORTABLE [RAD] Stat Combination Man: Radiologist - EKG Interpretation EKG Interpretation (Text): 10/20/18 EKG: Ordered, reviewed, and independently interpreted the EKG. Rate : 75 BPM Rhythm : NSR Interpretation : No ST-segment elevations or depressions, no T-wave inversions, normal intervals. Interpreted by ED Physician: Yes Type: 12 lead EKG - Scribe Statement The provider has reviewed the documentation as recorded by the Scribe Natalia Taylorh All medical record entries made by the Scribe were at my direction and personally dictated by me. I have reviewed the chart and agree that the record accurately reflects my personal performance of the history, physical exam, medical decision making, and the department course for this patient. I have also personally directed, reviewed, and agree with the discharge instructions and disposition. Disposition/Present on Arrival - Present on Arrival Any Indicators Present on Arrival: No History of DVT/PE: No History of Uncontrolled Diabetes: No Urinary Catheter: No History of Decub. Ulcer: No History Surgical Site Infection Following: None - Disposition Have Diagnosis and Disposition been Completed?: Yes Diagnosis: Chronic pain Disposition: HOME/ ROUTINE Disposition Time: 09:10 Condition: GOOD Discharge Instructions (ExitCare): Chronic Pain (DC) Additional Instructions: LAURA ANAYA, thank you for letting us take care of you today. The emergency medical care you received today was directed at your acute symptoms. If you were prescribed any medication, please fill it and take as directed. It may take several days for your symptoms to resolve. Return to the Emergency Department if your symptoms worsen, do not improve, or if you have any other problems. Please contact your doctor or call one of the physicians/clinics you have been referred to that are listed on the Patient Visit Information form that is i ncluded in your discharge packet. Bring any paperwork you were given at discharge with you along with any medications you are taking to your follow up visit. Our treatment cannot replace ongoing medical care by a primary care provider outside of the emergency department. Thank you for allowing the [facility] team to be part of your care today. Follow up with your primary care doctor and MANAGEMENT INTERN doctor in 3-4 days for re- evaluation and further management. Prescriptions: Oxycodone HCl/Acetaminophen [Percocet 7.5-325 mg Tablet] 1 each PO Q8 PRN #10 tablet PRN Reason: Pain, Severe (8-10) Referrals: Nancy Nagel MD [Family Provider] - Follow up with primary Forms: [employer] (Monegasque)
--- NOTE | 2018-10-20 19:40 | CARD ---
APPROVED REPORT Date of service: 10/20/2018 EKG Measurement Heart [id number] <Conclusion> Normal sinus rhythm Possible Left atrial enlargement Borderline ECG
== END 2018-10-20 09:40 | disposition home or self-care (01) ==
LOC: ED 06:52
DX: G89.29 Other chronic pain (principal); I10 Essential (primary) hypertension; E03.9 Hypothyroidism, unspecified

== ENCOUNTER 2018-11-03 15:42 | Emergency (ER) | payer MEDICAID ==
[2018-11-03 15:44] VITALS: BMI 30.4
[2018-11-03 16:14] VITALS: BP 144/85; PULSE 75; RESP 18; TEMP 97.9; O2SAT 98
[2018-11-03] MEDS ORDERED: Sodium Chloride 0.9% 500 ML IV STA (16:32)
[2018-11-03 17:11] LABS: BASO # 0.01 K/mm3 (0.0-2.0); BASO % 0.2 % (0.0-3.0); EOS % 0.7 % (1.5-5.0); GRAN # 2.04 (1.4-6.5); GRAN % 46.9 % (50.0-68.0); HEMOGLOBIN 12.8 g/dL (12.0-16.0); LYMPH # 1.9 (1.2-3.4); LYMPH % 43.7 % (22.0-35.0); MEAN CELL VOLUME 96.7 fl (80.0-105.0); MEAN CORPUSCULAR HEMOGLOBIN 32.1 pg (25.0-35.0); MEAN CORPUSCULAR HGB CONC 33.2 g/dl (31.0-37.0); MEAN PLATELET VOLUME 10.9 fl (7.0-11.0); MONO # 0.4 (0.1-0.6); MONO % 8.5 % (1.0-6.0); RBC 3.99 10^6/uL (3.5-6.1); RED CELL DISTRIBUTION WIDTH 12.6 % (11.5-14.5); WHITE BLOOD COUNT 4.4 10^3/uL (4.5-11.0)
[2018-11-03 17:15] LABS: ALB/GLOB RATIO 1.5 (1.1-1.8); ALBUMIN 4.2 g/dL (3.0-4.8); ALT/SGPT 28 U/L (7-56); AST/SGOT 34 U/L (14-36); BLOOD UREA NITROGEN 11 mg/dL (7-21); CALCIUM 9.3 mg/dL (8.4-10.5); GFR NON-AFRICAN AMERICAN > 60; LIPASE 142 U/L (23-300)
[2018-11-03] MEDS ORDERED: Iohexol 350 MG/100 ML VIAL ONE (17:22)
--- NOTE | 2018-11-03 17:52 | ED PDOC ---
Arrival/HPI - General Chief Complaint: Female Genitourinary Time Seen by Provider: 11/03/18 16:04 Historian: Patient - History of Present Illness Narrative History of Present Illness (Text): 11/03/18 17:41 57-year-old female presents today with chronic low back pain and left-sided neck pain as well as lower abdominal pain with constipation. Last bowel movement today, states stool is hard. Patient states she has a history of uterine fibroids and states that she's been having increasing lower abdominal pain without vaginal bleeding. pt states she saw her GI doctor today and was given rx for miralax. She denies dysuria or urinary frequency. Denies chest pain or shortness of breath. Patient states she sees a pain management doctor and get 7.5 mg of Percocet. pt states she is now having increased pain in both hips and states she had a bone density scan ordered by her PMD. Patient states that the pain in the hips have been no worsening. Patient states the pain is mostly in the right hip and occasionally in the right leg. She denies numbness weakness or tingling in the extremity. Patient denies fevers or chills. No nausea or vomiting. no bowel incontinence. pt states she does wear diapers because at times she has been occasionally leaking urine if goes up the stairs or if she coughs/laughs. pt states she has seen a urologist for this urinary issue and it is not new. No other complaints. Time/Duration: > week Symptom Onset: Gradual Past Medical History - Provider Review Nursing Documentation Reviewed: Yes - Travel History Have you recently traveled outside [place] w/in the past 3 mons?: No - Past History Past History: Non-Contributing - Infectious Disease Hx of Infectious Diseases: None - Tetanus Immunization Tetanus Immunization: Unknown - Reproductive Menopause: Yes - Cardiac Hx Hypertension: Yes - Pulmonary Other/Comment: smoker quit 10/30/18 - Neurological Hx Paralysis: No - HEENT Hx HEENT Disorder: (WEARS GLASSES) - Renal Hx Renal Disorder: No - Endocrine/Metabolic Hx Hypothyroidism: Yes - Hematological/Oncological Hx Cancer: Yes (cervix) - Integumentary Hx Dermatological Disorder: (ABRASION AND BRUISING FROM FALL) - Musculoskeletal/Rheumatological Hx Back Pain: Yes - Gastrointestinal Hx Gastrointestinal Disorders: No - Genitourinary/Gynecological Hx Incontinence: Yes - Psychiatric Hx Psychophysiologic Disorder: Yes Hx Anxiety: Yes Hx Depression: Yes Hx Panic Disorder: Yes Hx Substance Use: No - Surgical History Hx Orthopedic Surgery: Yes (NECK) - Anesthesia Hx Anesthesia: Yes Hx Anesthesia Reactions: No Hx Malignant Hyperthermia: No - Suicidal Assessment Feels Threatened In Home Enviroment: No Family/Social History - Physician Review Nursing Documentation Reviewed: Yes Family/Social History: Unknown Family HX Smoking Status: Former Smoker Hx Alcohol Use: Yes Hx Substance Use: No Hx Substance Use Treatment: No Allergies/Home Meds Allergies/Adverse Reactions: Allergies codeine Allergy (Verified 11/03/18 16:03) ITCHING Home Medications: Home Meds Medication Instructions Recorded Confirmed ALPRAZolam [Xanax] 1 mg PO BID PRN 09/05/16 12/29/17 Buspirone HCl 15 mg PO DAILY 09/05/16 12/29/17 Mirtazapine [Remeron] 30 mg PO HS 09/05/16 12/29/17 Spironolactone [Aldactone] 25 mg PO DAILY 09/05/16 12/29/17 buPROPion SR [Wellbutrin SR 150 MG] 1 tab PO DAILY 09/05/16 12/29/17 Levothyroxine [Synthroid] 88 mcg PO ACB 05/26/17 12/29/17 Zaleplon [Sonata] 5 mg PO HS 05/26/17 12/29/17 buPROPion SR [Wellbutrin SR 150 MG] 150 mg PO DAILY 12/29/17 12/29/17 Review of Systems - Review of Systems Constitutional: absent: Fatigue, Fevers Respiratory: absent: SOB, Cough Cardiovascular: absent: Chest Pain, Palpitations Gastrointestinal: Abdominal Pain. absent: Constipation, Diarrhea, Nausea, Vomiting Genitourinary Female: absent: Dysuria, Frequency, Hematuria Musculoskeletal: Arthralgias, Back Pain, Neck Pain Skin: absent: Rash, Pruritis Neurological: absent: Headache, Dizziness Psychiatric: absent: Anxiety, Depression, Suicidal Ideation Physical Exam Vital Signs Reviewed: Yes Vital Signs Temp Pulse Resp BP Pulse Ox 11/03/18 16:13 97.9 F 75 18 144/85 98 Temperature: Afebrile Blood Pressure: Normal Pulse: Regular Respiratory Rate: Normal Appearance: Positive for: Well-Appearing, Non-Toxic, Comfortable Pain Distress: None Mental Status: Positive for: Alert and Oriented X 3 - Systems Exam Head: Present: Atraumatic Mouth: Present: Moist Mucous Membranes Neck: Present: Normal Range of Motion, Paraspinal Tenderness (+ left sided trape zius tenderness, no edema, no erythema, no ecchymosis. ). No: MIDLINE TENDERNESS Respiratory/Chest: Present: Clear to Auscultation, Good Air Exchange. No: Respiratory Distress, Accessory Muscle Use Cardiovascular: Present: Regular Rate and Rhythm, Normal S1, S2. No: Murmurs Abdomen: Present: Tenderness (+ minimal lower abdominal tenderness). No: Distention, Rebound, Guarding Rectal: Present: Normal Rectal Tone, Other (sensation intact. ). No: Rectal Tenderness Back: Present: Normal Inspection, Midline Tenderness, Paraspinal Tenderness. No: Pain with Leg Raise Upper Extremity: Present: Normal ROM Lower Extremity: Present: Normal ROM, Neurovascularly Intact, Capillary Refill < 2 s, Other (pelvis stable ). No: Tenderness, Swelling Neurological: Present: GCS=15, Speech Normal, Motor Func Grossly Intact, Normal Sensory Function, Gait Normal Skin: Present: Warm, Dry, Normal Color. No: Rashes Psychiatric: Present: Alert, Oriented x 3 Medical Decision Making ED Course and Treatment: 11/03/18 17:44 57yr old female with arthralgias, chronic back and neck pain. with abdominal pain and hard stools. cbc; wnl cmp; wnl ekg; NSR at 66bpm no st elevations. ua; wnl xray right hip; no fracture ct abd/pelvis; FINDINGS: LOWER THORAX: Unremarkable. LIVER: Unremarkable. No gross lesion or ductal dilatation. GALLBLADDER AND BILE DUCTS: Unremarkable. PANCREAS: Unremarkable. No gross lesion or ductal dilatation. SPLEEN: Unremarkable. ADRENALS: Unremarkable. No mass. KIDNEYS AND URETERS: Unremarkable. No hydronephrosis. No solid mass. VASCULATURE: Unremarkable. No aortic aneurysm. No atherosclerotic calcification or mural plaque present. BOWEL: Unremarkable. No obstruction. No gross mural thickening. APPENDIX: Normal appendix. PERITONEUM: Unremarkable. No free fluid. No free air. LYMPH NODES: Unremarkable. No enlarged lymph nodes. BLADDER: Unremarkable. REPRODUCTIVE: Calcified fibroid uterus. BONES: Broad-based bulging disc at L4-5. This appears to extend into the neural foramen bilaterally. This would be better evaluated with dedicated MRI of the lumbar spine. OTHER FINDINGS: None. IMPRESSION: No acute findings related to/ accounting for the clinical presentation. Bulging annulus L4-5. Extension into the exiting neural foramen identified. Additional benign and/or incidental findings described above. 11/03/18 18:41 pt resting comfortably in er; afebrile. ambulating with steady gait. NO DISTRESS! Wants percocet refill. discussed all results with patient in depth; advised patient of herniated disk. advised f/u with orthopedist, neurosurgeon and her pain management doctor. pt refused fleets enema in er; states her GI specialist gave her miralax that s he is going to start taking. pt is requesting percocet as she hasnt been able to get in contact with her pain management doctor; TRANSFER DRIVER aware; pt has had percocet twice since september. will give fx for 6 percocet; pt was advised to increase fluids and take colace. (pt states she wants to take miralax instead). pt was advised immediate return if symptoms worsen, persist or if new symptoms develop. Patient verbalizes understanding of discharge instructions and need for immediate followup. all aspects of this case were discussed the attending of record. impression; chronic back pain, herniated disc, chronic hip pain, chronic neck pain, abdominal pain, uterine fibroids motrin every 6 hours as needed for pain percocet; 1 tablet every 6 hours as needed for moderate to severe pain; may caus e drowsiness. increase fluids/increase fiber take stool softener Follow up with the orthopedist within the next 2 days. Follow up with the back specialist/neurologist within the next 2 days. Follow up with ENT specialist within the next 2 days. return immediately if symptoms worsen,persist or if new symptoms develop. 11/03/18 19:46 pt is now stating that the hoarseness to her voice has been over the past few months; pt with smoking history. will add CT of soft tissue neck to r/o mass. case signed out to dr. Chen pending CT neck results and disposition. EXAM: CT Neck without Intravenous Contrast. CLINICAL HISTORY: SORE THROAT TECHNIQUE: Axial computed tomography images of the neck without intravenous contrast. Sagittal and coronal reformatted images were generated. 405.00 mGy-cm CONTRAST: Without COMPARISON: None provided. FINDINGS: PHARYNX: Unremarkable appearance of the nasopharynx, oropharyx, and hypopharynx. No pharyngeal mucosal based mass lesions. LARYNX: The larynx is unremarkable. The epiglottis appears normal. RETROPHARYNGEAL SPACE: No retropharyngeal soft tissue swelling or gas. SALIVARY GLANDS: No salivary gland abnormality evident. Unremarkable appearance of the parotid, submandibular, and sublingual glands. LYMPH NODES: No significant lymphadenopathy. THYROID: Unremarkable appearance of the thyroid. No thyroid nodule seen. BONES: No acute osseous abnormality. No aggressive appearing osseous lesion. IMPRESSION: Unremarkable CT neck with IV contrast. Electronically signed on Nov 03, 2018 8:14:38 PM EST by: Lee Rosales M.D., Certified by [facility]BR, Diagnostic Radiology Reassessment Condition: Re-examined - Lab Interpretations Lab Results: 11/03/18 17:00 11/03/18 17:00 Lab Results 11/03/18 17:00: WBC 4.4 L, RBC 3.99, Hgb 12.8, Hct 38.6, MCV 96.7, MCH 32.1, MCHC 33.2, RDW 12.6, Plt Count 334, MPV 10.9, Gran % 46.9 L, Lymph % (Auto) 43.7 H, [place] % (Auto) 8.5 H, Eos % (Auto) 0.7 L, Baso % (Auto) 0.2, Gran # 2.04, Lymph # (Auto) 1.9, [place] # (Auto) 0.4, Eos # (Auto) 0.0, Baso # (Auto) 0.01 11/03/18 17:00: Sodium 139, Potassium 3.9, Chloride 104, Carbon Dioxide 28, Anion Gap 11, BUN 11, Creatinine 0.6 L, Est GFR ( Amer) > 60, Est GFR (Non-Af Amer) > 60, Random Glucose 96, Calcium 9.3, Total Bilirubin 0.4, AST 34, ALT 28, Alkaline Phosphatase 77, Total Protein 7.0, Albumin 4.2, Globulin 2.8, Albumin/Globulin Ratio 1.5, Lipase 142 - RAD Interpretation Radiology Orders: 11/03/18 16:31 ABD & PELVIS IV CONTRAST ONLY [CT] Stat 11/03/18 17:11 Hip Right [HIP MIN 2V W/ PELVIS RT] [RAD] Stat - Medication Orders Current Medication Orders: Discontinued Medications Sodium Chloride (Sodium Chloride 0.9%) 500 mls @ 999 mls/hr IV .Q31M STA Stop: 11/03/18 17:02 Last Admin: 11/03/18 17:20 Dose: 999 mls/hr eMAR Start Stop Document 11/03/18 17:20 SS (Rec: 11/03/18 17:21 [facility] Intravenous Solution Start Date 11/03/18 Start Time 17:20 End Date 11/03/18 End time 17:50 Total Infusion Time 30 Ketorolac Tromethamine (Toradol) 30 mg IVP STAT STA Stop: 11/03/18 17:04 Last Admin: 11/03/18 17:20 Dose: 30 mg MAR Pain Assessment Document 11/03/18 17:20 SS (Rec: 11/03/18 17:20 [facility] Pain Reassessment Is this a pain reassessment? No Sleep Is patient sleeping during reassessment? Yes IVP Administration Document 11/03/18 17:20 SS (Rec: 11/03/18 17:20 [facility] Charges for Administration # of IVP Administrations 1 Disposition/Present on Arrival - Present on Arrival Any Indicators Present on Arrival: No History of DVT/PE: No History of Uncontrolled Diabetes: No Urinary Catheter: No History of Decub. Ulcer: No History Surgical Site Infection Following: None - Disposition Have Diagnosis and Disposition been Completed?: Yes Diagnosis: Chronic low back pain, Uterine leiomyoma, Hip pain, Throat pain Disposition: HOME/ ROUTINE Disposition Time: 18:54 Condition: GOOD Additional Instructions: motrin every 6 hours as needed for pain percocet; 1 tablet every 6 hours as needed for moderate to severe pain; may cause drowsiness. increase fluids/increase fiber take stool softener Follow up with the orthopedist within the next 2 days. Follow up with the back specialist/neurologist within the next 2 days. Advised f/u with ENT specialist within the next 2 days. return immediately if symptoms worsen,persist or if new symptoms develop. Prescriptions: Docusate [Colace] 100 mg PO BID #30 cap Oxycodone HCl/Acetaminophen [Endocet 7.5-325 mg Tablet] 1 tab PO Q6H PRN #5 tab PRN Reason: moderate to severe pain Referrals: [facility] [Outside] - Follow up with primary [facility] [Outside] - Follow up with primary Nancy Nagel MD [Primary Care Provider] - Follow up with primary Elvis Wesley III, MD [Medical Doctor] - Follow up with primary Michael Carlin MD [Staff Provider] - Follow up with primary Camron Au MD [Staff Provider] - Follow up with primary Jose A Sapp MD [Staff Provider] - Follow up with primary Rao Silva DO [Staff Provider] - Follow up with primary Forms: [employer] (Lithuanian)
--- NOTE | 2018-11-03 18:32 | CT ---
Date of service: 11/03/2018 PROCEDURE: CT Abdomen and Pelvis with contrast HISTORY: abd pain/ right and left hip pain/pelvic pain COMPARISON: None. TECHNIQUE: Intravenous contrast dose: 100 cc Omnipaque 300 Radiation dose: Total exam DLP = 86.30 mGy-cm. This CT exam was performed using one or more of the following dose reduction techniques: Automated exposure control, adjustment of the mA and/or kV according to patient size, and/or use of iterative reconstruction technique. FINDINGS: LOWER THORAX: Unremarkable. LIVER: Unremarkable. No gross lesion or ductal dilatation. GALLBLADDER AND BILE DUCTS: Unremarkable. PANCREAS: Unremarkable. No gross lesion or ductal dilatation. SPLEEN: Unremarkable. ADRENALS: Unremarkable. No mass. KIDNEYS AND URETERS: Unremarkable. No hydronephrosis. No solid mass. VASCULATURE: Unremarkable. No aortic aneurysm. No atherosclerotic calcification or mural plaque present. BOWEL: Unremarkable. No obstruction. No gross mural thickening. APPENDIX: Normal appendix. PERITONEUM: Unremarkable. No free fluid. No free air. LYMPH NODES: Unremarkable. No enlarged lymph nodes. BLADDER: Unremarkable. REPRODUCTIVE: Calcified fibroid uterus. BONES: Broad-based bulging disc at L4-5. This appears to extend into the neural foramen bilaterally. This would be better evaluated with dedicated MRI of the lumbar spine. OTHER FINDINGS: None. IMPRESSION: No acute findings related to/ accounting for the clinical presentation. Bulging annulus L4-5. Extension into the exiting neural foramen identified. Additional benign and/or incidental findings described above.
--- NOTE | 2018-11-03 18:47 | RAD ---
Indication: Right hip pain. Right hip with pelvis Comparison: CT abdomen pelvis with IV contrast performed 11/03/18; right hip radiographs performed 10/03/17 Findings: No acute displaced fracture or dislocation identified. Sacroiliac joints appear intact. Mild constipation. Soft tissues appear unremarkable. No evidence of radiopaque foreign body. Contrast is noticed within the urinary bladder and ureteral collecting system. Impression: No acute displaced fracture or dislocation evident. If high clinical index of suspicion, suggest cross-sectional imaging for further evaluation. Otherwise, if symptoms persist or if there is continued clinical concern, x-ray follow-up in 7-10 days should be considered.
[2018-11-03 19:28] LABS: PH,URINE 7.5 (4.7-8.0); URINE BILIRUBIN NEGATIVE (NEGATIVE); URINE BLOOD NEGATIVE (NEGATIVE); URINE GLUCOSE (UA) NEGATIVE (NEGATIVE); URINE LEUKOCYTE ESTERASE NEGATIVE Leu/uL (NEGATIVE); URINE PROTEIN NEGATIVE mg/dL (<30 mg/dL); URINE UROBILINOGEN 0.2 E.U./dL (<1 E.U./dL)
[2018-11-03 19:38] LABS: URINE APPEARANCE CLEAR (CLEAR); URINE COLOR LIGHT YELLOW (YELLOW)
--- NOTE | 2018-11-03 20:13 | CARD ---
APPROVED REPORT Date of service: 11/03/2018 EKG Measurement Heart [id number] <Conclusion> Normal sinus rhythm Normal Electrocardiogram
--- NOTE | 2018-11-04 18:07 | CT ---
Date of service: 11/03/2018 PROCEDURE: CT NECK WITHOUT CONTRAST HISTORY: hx of chronic sore throat. hx of smoking r/o mass COMPARISON: None available. TECHNIQUE: CT of the neck without intravenous contrast. Coronal and sagittal reformats generated. Radiation dose: Total exam DLP = 405.23 mGy-cm. This CT exam was performed using one or more of the following dose reduction techniques: Automated exposure control, adjustment of the mA and/or kV according to patient size, and/or use of iterative reconstruction technique. FINDINGS: NASOPHARYNX: Unremarkable. SUPRAHYOID NECK: Unremarkable oropharynx, parapharyngeal space and retropharyngeal space. A large portion of the oral cavity is obscured by extensive artifact related to dental hardware with posterior oropharynx unremarkable. INFRAHYOID NECK: Unremarkable larynx, hypopharynx, and supraglottic space. Vocal cords intact. MASS: None. GLANDS: Parotid and submandibular glands unremarkable. Normal size thyroid gland, without nodule. LYMPH NODES: Normal. No lymphadenopathy. CERVICAL SPINE: No fracture or focal lesion. OTHER FINDINGS: None. IMPRESSION: Generally unremarkable non-contrast enhanced CT of the neck, however, lack images contrast limits interpretation, particularly for potential small masses and artifact from dental hardware obscures the anterior and middle oral cavity significantly. Preliminary report provided by Margarito, 11/03/2018 2:38 p.m.
== END 2018-11-03 22:41 | disposition home or self-care (01) ==
LOC: ED 15:42
DX: G89.29 Other chronic pain (principal); M54.5 Low back pain; D25.9 Leiomyoma of uterus, unspecified; R07.0 Pain in throat; M25.551 Pain in right hip; M25.552 Pain in left hip; E03.9 Hypothyroidism, unspecified; I10 Essential (primary) hypertension; Z87.891 Personal history of nicotine dependence
CPT/HCPCS: 70490; 73502; 74177; 80053; 81003; 83690; 85025; 93005; 96374; 99283; J1885; J7040; Q9967

== ENCOUNTER 2018-12-18 20:03 | Emergency (ER) | payer MEDICAID ==
[2018-12-18 20:34] VITALS: RESP 18; TEMP 97.9; BMI 28.5
[2018-12-18] MEDS ORDERED: Amoxicillin-Clav 875-125 mg Tab PO STA (21:46)
[2018-12-18] MEDS ORDERED: TDAP Vaccine 0.5 mL Syr IM ONE (21:47)
--- NOTE | 2018-12-18 23:41 | ED PDOC ---
Arrival/HPI <Daniel Cardoza - Last Filed: 12/19/18 00:09> - General Historian: Patient - History of Present Illness Narrative History of Present Illness (Text): 12/18/18 23:38 58yo female with pmhx of hypertension, cervical CA, COPD who present with complaint of cat and dog bite x 3days ago. States she have owned the cat for over 20yrs and dog was her brother's. states she couldn't come in earlier, because of transportation issue until today. Also complaining of b/l leg pain x weeks. States she saw her PMD for the pain, but nothing was done for it. Denies trauma, redness, fever, chills, nausea, chest pain, SOB, diaphoresis, recent travel, any other complaint. <Roro Acosta A - Last Filed: 12/19/18 00:18> - General Chief Complaint: Bite Time Seen by Provider: 12/18/18 21:03 Past Medical History - Provider Review Nursing Documentation Reviewed: Yes - Past History Past History: Non-Contributing - Infectious Disease Hx of Infectious Diseases: None - Tetanus Immunization Tetanus Immunization: Unknown - Reproductive Menopause: Yes - Cardiac Hx Cardiac Disorders: Yes Hx Hypertension: Yes - Pulmonary Hx Respiratory Disorders: No Other/Comment: smoker quit 10/30/18 - Neurological Hx Neurological Disorder: No - HEENT Hx HEENT Disorder: Yes (WEARS GLASSES) - Renal Hx Renal Disorder: No - Endocrine/Metabolic Hx Endocrine Disorders: Yes Hx Hypothyroidism: Yes - Hematological/Oncological Hx Blood Disorders: Yes Hx Cancer: Yes (cervix) - Integumentary Hx Dermatological Disorder: Yes (ABRASION AND BRUISING FROM FALL) - Musculoskeletal/Rheumatological Hx Musculoskeletal Disorders: Yes Hx Back Pain: Yes - Gastrointestinal Hx Gastrointestinal Disorders: No - Genitourinary/Gynecological Hx Genitourinary Disorders: Yes Hx Incontinence: Yes - Psychiatric Hx Psychophysiologic Disorder: Yes Hx Anxiety: Yes Hx Depression: Yes Hx Panic Disorder: Yes Hx Substance Use: No - Surgical History Hx Orthopedic Surgery: Yes (NECK) - Anesthesia Hx Anesthesia: Yes Hx Anesthesia Reactions: No Hx Malignant Hyperthermia: No - Suicidal Assessment Feels Threatened In Home Enviroment: No <Roro Acosta A - Last Filed: 12/19/18 00:18> Family/Social History - Physician Review Nursing Documentation Reviewed: Yes Family/Social History: Unknown Family HX Smoking Status: Former Smoker Hx Alcohol Use: Yes Hx Substance Use: No Hx Substance Use Treatment: No <Roro Acosta A - Last Filed: 12/19/18 00:18> Allergies/Home Meds <NaniDaniel - Last Filed: 12/19/18 00:09> <Roro Acosta A - Last Filed: 12/19/18 00:18> Allergies/Adverse Reactions: Allergies codeine Allergy (Verified 11/17/18 02:13) ITCHING Home Medications: Home Meds Medication Instructions Recorded Confirmed Mirtazapine [Remeron] 30 mg PO HS 09/05/16 11/17/18 RX: ALPRAZolam [Xanax] 1 mg PO BID PRN 09/05/16 11/17/18 RX: Buspirone HCl 15 mg PO DAILY 09/05/16 11/17/18 Spironolactone [Aldactone] 25 mg PO DAILY 09/05/16 11/17/18 buPROPion SR [Wellbutrin SR 150 MG] 1 tab PO DAILY 09/05/16 11/17/18 RX: Levothyroxine [Synthroid] 88 mcg PO ACB 05/26/17 11/17/18 RX: Zaleplon [Sonata] 5 mg PO HS 05/26/17 11/17/18 Review of Systems - Physician Review All systems were reviewed & negative as marked: Yes - Review of Systems Constitutional: Normal Eyes: Normal ENT: Normal Respiratory: Normal Cardiovascular: Normal Gastrointestinal: Normal Genitourinary Female: Normal Musculoskeletal: Arthralgias (B/l leg pain) Skin: Other (Dog and cat bite) Neurological: Normal Endocrine: Normal Hemo/Lymphatic: Normal Psychiatric: Normal <Roro Acosta A - Last Filed: 12/19/18 00:18> Physical Exam Vital Signs Temp Pulse Resp BP Pulse Ox 12/18/18 22:03 69 18 148/78 98 12/18/18 20:33 97.9 F 77 18 153/80 H 97 <Daniel Cardoza - Last Filed: 12/19/18 00:09> Vital Signs Reviewed: Yes Vital Signs Temp Pulse Resp BP Pulse Ox 12/18/18 22:03 69 18 148/78 98 12/18/18 20:33 97.9 F 77 18 153/80 H 97 Temperature: Afebrile Blood Pressure: Normal Pulse: Regular Respiratory Rate: Normal Appearance: Positive for: Well-Appearing, Non-Toxic, Comfortable Pain Distress: None Mental Status: Positive for: Alert and Oriented X 3 - Systems Exam Head: Present: Atraumatic, Normocephalic Pupils: Present: PERRL Extroacular Muscles: Present: EOMI Conjunctiva: Present: Normal Mouth: Present: Moist Mucous Membranes Neck: Present: Normal Range of Motion Respiratory/Chest: Present: Clear to Auscultation, Good Air Exchange. No: Respiratory Distress, Accessory Muscle Use Cardiovascular: Present: Regular Rate and Rhythm, Normal S1, S2. No: Murmurs Abdomen: No: Tenderness, Distention, Peritoneal Signs Back: Present: Normal Inspection Upper Extremity: Present: Normal Inspection. No: Cyanosis, Edema Lower Extremity: Present: Normal Inspection, NORMAL PULSES, Normal ROM, Neurovascularly Intact, Capillary Refill < 2 s. No: Edema, CALF TENDERNESS, Maryam's Sign, Tenderness, Swelling, Temperature Abnormalties Neurological: Present: GCS=15, CN II-XII Intact, Speech Normal Skin: Present: Warm, Dry, Normal Color, Other (Healing puncture wound with fibrous tissue noted on abdominal wall and left volar hand. No erythema. No discharge. No swelling. No TTP). No: Rashes Psychiatric: Present: Alert, Oriented x 3, Normal Insight, Normal Concentration <Diru,Happiness A - Last Filed: 12/19/18 00:18> Medical Decision Making - RAD Interpretation Radiology Orders: 12/18/18 21:36 DUPLEX LOWER EXTRM VEIN BILAT [US] Stat 12/18/18 22:20 FOOT 3 VIEWS BI [RAD] Stat 12/18/18 22:21 KNEE W PATELLA BILAT 3 VIEW [RAD] Stat - Medication Orders Current Medication Orders: Discontinued Medications Acetaminophen (Tylenol 325mg Tab) 650 mg PO STAT STA Stop: 12/18/18 22:07 Last Admin: 12/18/18 22:22 Dose: 650 mg MAR Pain/Vitals Document 12/18/18 22:22 OCS (Rec: 12/18/18 22:22 OCS [id number]) Pain Reassessment Is This A Pain ReAssessment? No Sleep Is patient sleeping during reassessment? No Presence of Pain Presence of Pain Yes Pain Scale Used Protocol: PSCALES Pain Scale Used Numeric Location Left, Right or Bilateral Bilateral Pain Location Body Site Legs Description Constant Intensity 6 Scale Used Numeric Aggravating Factors ADL's Amoxicillin/Clavulanate Potassium (Augmentin 875 Mg-125 Mg Tab) 1 tab PO STAT STA; Protocol Stop: 12/18/18 21:47 Last Admin: 12/18/18 21:54 Dose: 1 tab Ketorolac Tromethamine (Toradol) 60 mg IM STAT STA Stop: 12/19/18 00:02 Tetanus/Reduced Diphtheria/Acell Pertussis (Boostrix Vaccine Inj) 0.5 ml IM .ONCE ONE Stop: 12/18/18 21:48 Last Admin: 12/18/18 21:54 Dose: 0.5 ml Immunization Registry Document 12/18/18 21:54 OCS (Rec: 12/18/18 21:54 OCS [id number]) [facility]-Date provided 10/20/18 <Daniel Cardoza - Last Filed: 12/19/18 00:09> ED Course and Treatment: 12/19/18 00:17 PT presented to ED for stated history. Her TD booster was updated and she was placed on Augmentin B/L doppler US - preliminary report was negative for DVT. Result was DW the pt and was DC home. - RAD Interpretation Radiology Orders: 12/18/18 21:36 DUPLEX LOWER EXTRM VEIN BILAT [US] Stat 12/18/18 22:20 FOOT 3 VIEWS BI [RAD] Stat 12/18/18 22:21 KNEE W PATELLA BILAT 3 VIEW [RAD] Stat - Medication Orders Current Medication Orders: Discontinued Medications Acetaminophen (Tylenol 325mg Tab) 650 mg PO STAT STA Stop: 12/18/18 22:07 Last Admin: 12/18/18 22:22 Dose: 650 mg MAR Pain/Vitals Document 12/18/18 22:22 OCS (Rec: 12/18/18 22:22 OCS [id number]) Pain Reassessment Is This A Pain ReAssessment? No Sleep Is patient sleeping during reassessment? No Presence of Pain Presence of Pain Yes Pain Scale Used Protocol: PSCALES Pain Scale Used Numeric Location Left, Right or Bilateral Bilateral Pain Location Body Site Legs Description Constant Intensity 6 Scale Used Numeric Aggravating Factors ADL's Amoxicillin/Clavulanate Potassium (Augmentin 875 Mg-125 Mg Tab) 1 tab PO STAT STA; Protocol Stop: 12/18/18 21:47 Last Admin: 12/18/18 21:54 Dose: 1 tab Tetanus/Reduced Diphtheria/Acell Pertussis (Boostrix Vaccine Inj) 0.5 ml IM .ONCE ONE Stop: 12/18/18 21:48 Last Admin: 12/18/18 21:54 Dose: 0.5 ml Immunization Registry Document 12/18/18 21:54 OCS (Rec: 12/18/18 21:54 OCS [id number]) [facility]-Date provided 10/20/18 <Roro Acosta A - Last Filed: 12/19/18 00:18> - PA / ABA THERAPIST / Resident Statement /DO has reviewed & agrees with the documentation as recorded. <Daniel Cardoza - Last Filed: 12/19/18 00:09> Disposition/Present on Arrival <Daniel Cardoza - Last Filed: 12/19/18 00:09> - Present on Arrival Any Indicators Present on Arrival: No History of DVT/PE: No History of Uncontrolled Diabetes: No Urinary Catheter: No History of Decub. Ulcer: No History Surgical Site Infection Following: None - Disposition Have Diagnosis and Disposition been Completed?: Yes Disposition Time: 23:45 Patient Plan: Discharge <Roro Acosta A - Last Filed: 12/19/18 00:18> - Disposition Diagnosis: Animal bite, Leg pain Disposition: HOME/ ROUTINE Patient Problems: Current Active Problems Problem Status Onset Animal bite Acute Leg pain Acute Condition: STABLE Discharge Instructions (ExitCare): Animal Bites (DC) Additional Instructions: Follow up with your Doctor Return to ED for any new or worsening symptoms Prescriptions: Amoxicillin/Clavulanate [Augmentin 875 MG-125 MG] 1 tab PO BID #14 tab Referrals: Nancy Nagel MD [Primary Care Provider] - Follow up with primary Forms: Snaps (Czech)
[2018-12-19 00:13] VITALS: BP 112/78; PULSE 72; O2SAT 100
--- NOTE | 2018-12-19 14:32 | RAD ---
Date of service: 12/18/2018 PROCEDURE: Bilateral Feet Radiographs. HISTORY: foot pain COMPARISON: None. FINDINGS: BONES: Right Foot: Normal. No fracture. Left Foot: Normal. No fracture. JOINTS: Right Foot: Normal. No osteoarthritis. Left Foot: Normal. No osteoarthritis. SOFT TISSUES: Right Foot: Normal. Left Foot: Normal. OTHER FINDINGS: None. IMPRESSION: No significant or acute findings to account for/ related to the clinical presentation.
--- NOTE | 2018-12-19 14:33 | RAD ---
Date of service: 12/18/2018 PROCEDURE: Bilateral Knee Radiographs. HISTORY: knee pain COMPARISON: None. FINDINGS: BONES: Right Knee: Normal. No fracture. Left Knee: Normal. No fracture. JOINTS: Right Knee: Mild medial compartment narrowing. Left knee: Symmetrical medial compartment narrowing. SOFT TISSUES: Right Knee: Normal. Left Knee: Normal. JOINT EFFUSION: Right Knee: None. Left Knee: None. OTHER FINDINGS: None. IMPRESSION: Mild degenerative changes bilaterally. These are confined to the medial compartment and are approximately symmetrical.
--- NOTE | 2018-12-19 20:23 | US ---
HISTORY: Leg pain and swelling. Evaluate for DVT PHYSICIAN(S): Rangel Gray MD. TECHNIQUE: Duplex sonography and color-flow Doppler with graded compression were used to evaluate the deep venous systems of both lower extremities. FINDINGS: The visualized deep venous systems of both lower extremities are sonographically normal and compressible. Normal wave forms and augmentation are seen. There is no sonographic evidence for deep venous thrombosis in the visualized segments of both lower extremities. IMPRESSION: No sonographic evidence for deep venous thrombosis in the visualized segments of both lower extremities.
== END 2018-12-19 00:16 | disposition home or self-care (01) ==
LOC: ED 20:03
DX: M79.605 Pain in left leg (principal); M79.604 Pain in right leg; W54.0XXA Bitten by dog, initial encounter; W55.01XA Bitten by cat, initial encounter; E03.9 Hypothyroidism, unspecified; I10 Essential (primary) hypertension; J44.9 Chronic obstructive pulmonary disease, unspecified; Z87.891 Personal history of nicotine dependence; Z23 Encounter for immunization
CPT/HCPCS: 73562; 73630; 90471; 90715; 93970; 96372; 99283; J1885